=== PATIENT | male | born 1995 | race Caucasian/White ===

== ENCOUNTER 2017-10-04 13:12 | Inpatient (IN) | payer MEDICAID, OTHER ==
--- NOTE | 2017-10-04 13:55 | C.PDOC ---
History Of Present Illness 21 year old male is brought to the ED by ambulance and [employer] for psychiatric evaluation of agitated and bizarre behavior noted POL[employer]. Patient states he was taking a shower earlier today, when he began feeling like he was getting " bitten all over." Patient then got out of the shower and ran into traffic, stating he wanted to kill himself. Upon ED arrival, patient is screaming, crying and displaying further bizarre behavior. He admits to occasional cigarette, marijuana and alcohol use. Patient denies suicidal/homicidal ideation at this time. Time Seen by Provider: 10/04/17 13:23 Chief Complaint (Nursing): Psychiatric Evaluation History Per: Patient, EMS, Other ([employer]) History/Exam Limitations: no limitations Onset/Duration Of Symptoms: Hrs Current Symptoms Are (Timing): Still Present Suicide/Self Injury Attempted (Context): None Associated Symptoms: Suicidal Thoughts. denies: Suicidal Plan Involuntary Hold By: None Recent travel outside of the [place]: No Additional History Per: Patient, EMS, Law Enforcement Past Medical History Reviewed: Historical Data, Nursing Documentation, Vital Signs Vital Signs: Last Vital Signs Temp 98.8 F 10/04/17 15:15 Pulse 98 H 10/04/17 15:15 Resp 18 10/04/17 15:15 BP 119/68 10/04/17 15:15 Pulse Ox 97 10/04/17 15:15 - Medical History PMH: HIV Surgical History: No Surg Hx Family History: States: Unknown Family Hx - Social History Hx Alcohol Use: No Hx Substance Use: Yes - Immunization History Hx Tetanus Toxoid Vaccination: No Hx Influenza Vaccination: No Hx Pneumococcal Vaccination: No Review Of Systems Psych: Positive for: Suicidal ideation Physical Exam - Physical Exam Appears: Non-toxic, No Acute Distress, Other (restless, bizarre voluntary movements of hands and feet. calm, cooperative, answering questions ) Skin: Normal Color, Warm, Dry Head: Atraumatic, Normacephalic Eye(s): bilateral: Normal Inspection Oral Mucosa: Moist Neck: Supple Chest: Symmetrical, No Deformity, No Tenderness Cardiovascular: Rhythm Regular, No Murmur Respiratory: Normal Breath Sounds, No Rales, No Rhonchi, No Wheezing Extremity: Normal ROM, Capillary Refill (less than 2 seconds ) Neurological/Psych: Oriented x3 ED Course And Treatment - Laboratory Results Result Diagrams: 10/04/17 14:12 10/04/17 14:12 Lab Interpretation: No Acute Changes (UDS + marijuana and amphetamines) O2 Sat by Pulse Oximetry: 95 Progress Note: Bloodwork and urinalysis ordered and reviewed. Patient evaluated by crisis and case discussed with psychiatrist. He is medically cleared for a psychiatric admission. Reevaluation Time: 18:02 Reassessment Condition: Unchanged Disposition - Disposition Disposition: HOSPITALIZED Disposition Time: 18:02 Condition: STABLE - Clinical Impression Clinical Impression: Manic bipolar I disorder, Substance abuse - Scribe Statement The provider has reviewed the documentation as recorded by the Scribe (Laura Lamb) Provider Attestation: All medical record entries made by the Scribe were at my direction and personally dictated by me. I have reviewed the chart and agree that the record accurately reflects my personal performance of the history, physical exam, medical decision making, and the department course for this patient. I have also personally directed, reviewed, and agree with the discharge instructions and disposition.
[2017-10-04 14:17] LABS: EOS # 0.1 K/uL (0.0-0.7); LYMPH # 1.8 K/uL (1.0-4.3); MONO # 0.9 K/uL (0.0-0.8)
[2017-10-04 14:18] LABS: BASO # 0.1 K/uL (0.0-0.2); BASO % 0.6 % (0.0-2.0); EOS % 0.7 % (0.0-4.0); HEMOGLOBIN 15.6 g/dL (12.0-18.0); LYMPH % 18.1 % (20.0-40.0); MEAN CELL VOLUME 88.7 fL (80.0-94.0); MEAN PLATELET VOLUME 7.6 fL (7.2-11.7); NEUT # 7.2 K/uL (1.8-7.0); NEUT % 71.6 % (50.0-75.0); NRBC % 0.1 % (0.0-2.0); RBC 5.03 Mil/uL (4.40-5.90); RED CELL DISTRIBUTION WIDTH 13.7 % (11.5-14.5); WHITE BLOOD COUNT 10.1 K/uL (4.8-10.8)
[2017-10-04 14:29] LABS: ALB/GLOB RATIO 1.5 (1.0-2.1); ALT/SGPT 25 U/L (21-72); AST/SGOT 38 U/L (17-59); BLOOD UREA NITROGEN 20 mg/dL (9-20); CALCIUM 9.5 mg/dl (8.6-10.4); GFR AFRICAN-AMERICAN > 60; GFR NON-AFRICAN AMERICAN > 60
[2017-10-04 15:58] LABS: SQUAMOUS EPITHIAL 1 /hpf (0-5); URINE BACTERIA RARE (<OCC); URINE BILIRUBIN NEGATIVE (NEGATIVE); URINE BLOOD NEGATIVE (NEGATIVE); URINE CLARITY Hazy (Clear); URINE COLOR Amber (YELLOW); URINE GLUCOSE (UA) NORMAL (Normal); URINE LEUKOCYTE ESTERASE NEG Leu/uL (Negative); URINE PROTEIN 1+ mg/dL (NEGATIVE); URINE UROBILINOGEN NORMAL mg/dL (0.2-1.0)
[2017-10-04 16:44] LABS: BENZODIAZEPINES, UR NEGATIVE (NEGATIVE); OPIATES, UR NEGATIVE (NEGATIVE); PHENCYCLIDINE, UR NEGATIVE (NEGATIVE)
[2017-10-04 19:24] LABS: BARBITURATES, UR NEGATIVE (NEGATIVE)
--- NOTE | 2017-10-04 22:30 | PCM.BM ---
<Tyron Burgos - Last Filed: 10/04/17 22:29> Treatment Plan Problems - Problems identified on initial assessmt Bipolar disorder Date Initiated: 10/04/17 Time Initiated: 22:29 Treatment assets and liabiliti Patient Assests: cooperative, educated Patient Liabilities: substance abuse (Marijuana) - Milieu Protocol Maintain good personal hygiene: daily Encourage regular showers, daily Remind patient to perform daily oral care, every shift Assist patient to perform ADL's Conduct patient checks and document Observation sheet: Q15 minutes (For safety) Maintain personal safety: every shift Educate patient to report safety concerns to staff, every shift Monitor environment for contraband/sharps Medication safety: Monitor for expected outcome, potential side effects: every shift, Assess barriers to learning: every shift, Assess readiness for medication education: every shift <Shannan Mccarty - Last Filed: 10/06/17 10:47> - Diagnosis (1) Manic bipolar I disorder Status: Acute Interventions: 10/06/17 10:48 * Assess/adjust medications daily and /or as needed * See patient on an individual basis 7x/week to assess level of manic behaviors and stability * Discuss risks, benefits, side effects and alternatives of medications * (2) Substance abuse Status: Acute Interventions: 10/06/17 10:48 * Assess 7x/week regarding severity of withdrawal * Educate regarding risks, benefits, side effects and alternatives of medications * Use Motivational Interviewing for abstinence * Use CBT for relapse prevention * Medication management for withdrawal symptoms * Encourage medication assisted treatment * <Dayanara Reno - Last Filed: 10/06/17 11:33> Family Contact Family involvement: Famliy/SO not involved - Goals for Treatment Patient goals for treatment: "I don't know." Discharge/Continuing Care - Education Needs Education Needs: Patient Medication, Patient Coping Skills - Discharge Discharge Criteria: Tolerates medication w/o severe side effects, Free of Suicidal thoughts, Reduction of target symptoms Discharge to:: Home - Treatment Team Participation Discussed with Family/SO: No Was Patient/Family/SO present at Treatment Team Meeting: Yes
--- NOTE | 2017-10-05 09:37 | PCM.PSYCH ---
Initial Psychiatric Evaluation - Initial Psychiatric Evaluation Type of Admission: Voluntary Legal Status: Capacity Chief Complaint (in patient's own words): I don't know why the police came.' History of Present Illness and Precipitating Events: Patient was a 21 year old male brought to emergency room in handcuffs by Police due to disorganized behavior, suicidal threat and attempt to jump off the roof of his apartment. Patient appeared somewhat disorganized throughout the interview. He continued to have abnormal movements of the hands and appeared delusional, paranoid and worthlessness. According to Patient's report, Patient stated "I was taking a shower and came downstairs and went back up. I was cuffed when Police called. I couldn't stop saying what I was saying. I said I want to ". Patient denies any history of mental illness. However, [facility] records indicates that Patient has a history of alcohol use, Bipolar Disorder and Substance abuse. Patient denies any history of inpatient psychiatric hospitalizations at the time of interview. Patient reports history of mental illness in the maternal family of origin. Patient's mother was reported to suffer from Bipolar and Depression. Patient reports history of alcohol use, marijuana use, tobacco use, acid use, mushroom use and cocaine use. Reports that he stopped using mushrooms , acid and cocaine more than 1 year ago. Patient reports, he smokes marijuana with his sister once per week (a blunt) and reports drinking socially. Patient reports completing freshman year at [employer] and dropped out during the 3rd semester of sophomore year due to depression and substance use. He remains irritable, agitated and restless throughout the interview. He appears paranoid and delusional however, he denies any auditory or visual hallucinations. PMH Asthma Current Medications: Active Medications Generic Name Dose Route Start Last Admin Trade Name Freq PRN Reason Stop Dose Admin Haloperidol 5 mg 10/04/17 23:14 Haldol PO Q6 PRN Agitation Ibuprofen 400 mg 10/04/17 23:16 Motrin Tab PO Q6 PRN Pain, moderate (4-7) Lorazepam 1 mg 10/04/17 23:14 Ativan PO Q6 PRN Anxiety Risperidone 2 mg 10/05/17 22:00 Risperdal Tab PO HS AURELIA Trazodone HCl 50 mg 10/04/17 23:30 10/05/17 07:49 Desyrel PO Not Given HS AURELIA Past Psychiatric History - Past Psychiatric History Previous Treatment History: None Pertinent Medical Hx (Current Medical&Sleep Prob, Allergies): Allergies Allergy/AdvReac Type Severity Reaction Status Date / Time shellfish derived Allergy Verified 10/04/17 13:33 Emtricitabine/Tenofovir [Truvada 200 mg-300 mg] 1 tab PO DAILY 10/31/14 Review of Systems - Review of Systems All systems: reviewed and no additional remarkable complaints except - Psychiatric Psychiatric: Anxiety, Irritability, Mood Swings, Paranoia, Suicidal Ideation Mental Status Examination - Personal Presentation Personal Presentation: Looks older than stated age - Affect Affect: Constricted, Depressed - Motor Activity Motor Activity: Psychomotor Agitation - Reliability in Providing Information Reliability in Providing Information: Poor, due to alteration in thoughts, Poor , due to altered mood - Speech Speech: Disorganized - Mood Mood: Depressed, Anxious - Formal Thought Process Formal Thought Process: Delusions, Paranoia, Loosening of associations - Hallucinations/Delusions Delusions: Persecution - Obsessions/Compulsions Obsessions: No Compulsions: No - Cognitive Functions Orientation: Person, Place, Situation, Time Sensorium: Alert Attention/Concentration: Attentive Abstract Thinking: [place] Estimate of Intelligence: Below average Judgement: Imparied, as evidence by: Poor judgement, Imparied, as evidence by: Lack of insight into illness - Risk Risk: Diminished functioning - Strength & Assets Inventory Strength & Assets Inventory: Family support DSM 5 DX - DSM 5 DSM 5 Diagnosis: Bipolar disorder mixed with psychotic features Rule out schizoaffective disorder bipolar type 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 - Recommended/Plan of Treatment Treatment Recommendations and Plan of Treatment: Bipolar disorder mixed with psychotic features Rule out schizoaffective disorder bipolar type 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
--- NOTE | 2017-10-06 10:48 | PCM.PYCHPN ---
Psychiatric Progress Note - Psychiatric Progress Note Patient seen today, length of contact: 15 min Patient Chief Complaint: I don't know why the police came.' Problems Identified/Issues Discussed: Patient seen and evaluated, chart reviewed and discussed with the nurse. Patient remained disorganized and internally preoccupied. Patient remained isolated, confined and withdrawn. He still reports of hearing voices. Patient still appears paranoid and delusional. He is taking medication and denies any side effects. Supportive therapy and psychoeducation were given. Medication Change: Yes Medical Record Reviewed: Yes Mental Status Examination - Cognitive Function Orientation: Person, Place, Situation, Time Memory: Intact Attention: WNL Concentration: Poor Association: Loose Fund of Knowledge: Poor - Mood Mood: Depressed, Anxious - Affect Affect: Constricted, Depressed - Speech Speech: Soft - Formal Thought Process Formal Thought Process: Delusions, Paranoia, Loosening of associations - Suicidal Ideation Suicidal Ideation: No - Homicidal Ideation Homicidal Ideation: No Goal/Treatment Plan - Goal/Treatment Plan Need for Continued Stay: Severe depression anxiety, Severe functional impairment Progress Toward Problem(s) and Goals/Treatment Plan: Bipolar disorder mixed with psychotic features Rule out schizoaffective disorder bipolar type 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
--- NOTE | 2017-10-07 08:02 | PCM.PYCHPN ---
Psychiatric Progress Note - Psychiatric Progress Note Patient seen today, length of contact: 15 min Patient Chief Complaint: I am feeling fine.'' Problems Identified/Issues Discussed: Patient seen and evaluated, chart reviewed and discussed with the nurse. Today patient appears somewhat more organized but remained internally preoccupied. Patient remained isolated, confined and withdrawn. He denies any voices, but he appears paranoid and delusional. He remained isolated and withdrawn, and denies any suicidal ideation or homicidal ideation. He is taking medication and denies any side effects. Symptoms are improving but needs more time for stabilization. Supportive therapy and psychoeducation were given. Medication Change: Yes (Increase Risperdal) Medical Record Reviewed: Yes Mental Status Examination - Cognitive Function Orientation: Person, Place, Situation, Time Memory: Intact Attention: WNL Concentration: Poor Association: Loose Fund of Knowledge: Poor - Mood Mood: Depressed, Anxious - Affect Affect: Constricted, Depressed - Speech Speech: Soft - Formal Thought Process Formal Thought Process: Delusions, Paranoia, Loosening of associations - Suicidal Ideation Suicidal Ideation: No - Homicidal Ideation Homicidal Ideation: No Goal/Treatment Plan - Goal/Treatment Plan Need for Continued Stay: Severe depression anxiety, Severe functional impairment Progress Toward Problem(s) and Goals/Treatment Plan: Bipolar disorder mixed with psychotic features Rule out schizoaffective disorder bipolar type 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
--- NOTE | 2017-10-08 17:17 | PCM.PYCHPN ---
Psychiatric Progress Note - Psychiatric Progress Note Patient seen today, length of contact: 15 min Patient Chief Complaint: I am feeling fine.'' Problems Identified/Issues Discussed: Patient seen and evaluated, chart reviewed and discussed with the nurse. Today patient appears somewhat more organized but remained internally preoccupied. Patient remained isolated, confined and withdrawn. He denies any voices, but he appears paranoid and delusional. He remained isolated and withdrawn, and denies any suicidal ideation or homicidal ideation. He is taking medication and denies any side effects. Symptoms are improving but needs more time for stabilization. Supportive therapy and psychoeducation were given. Medication Change: Yes (Increase Risperdal) Medical Record Reviewed: Yes Mental Status Examination - Cognitive Function Orientation: Person, Place, Situation, Time Memory: Intact Attention: WNL Concentration: Poor Association: Loose Fund of Knowledge: Poor - Mood Mood: Depressed, Anxious - Affect Affect: Constricted, Depressed - Speech Speech: Soft - Formal Thought Process Formal Thought Process: Delusions, Paranoia, Loosening of associations - Suicidal Ideation Suicidal Ideation: No - Homicidal Ideation Homicidal Ideation: No Goal/Treatment Plan - Goal/Treatment Plan Need for Continued Stay: Severe depression anxiety, Severe functional impairment Progress Toward Problem(s) and Goals/Treatment Plan: Bipolar disorder mixed with psychotic features Rule out schizoaffective disorder bipolar type 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
[2017-10-09 08:08] VITALS: O2SAT 98
--- NOTE | 2017-10-12 14:13 | PCM.PYCHPN ---
Psychiatric Progress Note - Psychiatric Progress Note Patient seen today, length of contact: 15 min Patient Chief Complaint: I am feeling fine.'' Problems Identified/Issues Discussed: Patient seen and evaluated, chart reviewed and discussed with the nurse. As per staff, patient was found talking to himself and making a conversation. However he still appears more organized than before but he remained internally preoccupied. He started coming out of his room and was found pacing back and forth in the hallway and punching the air. He appears paranoid and delusional. He is taking medication and denies any side effects. Symptoms are improving but needs more time for stabilization. Supportive therapy and psychoeducation were given. Medication Change: Yes (Increase Risperdal) Medical Record Reviewed: Yes Mental Status Examination - Cognitive Function Orientation: Person, Place, Situation, Time Memory: Intact Attention: WNL Concentration: Poor Association: Loose Fund of Knowledge: Poor - Mood Mood: Depressed, Anxious - Affect Affect: Constricted, Depressed - Speech Speech: Soft - Formal Thought Process Formal Thought Process: Delusions, Paranoia, Loosening of associations - Suicidal Ideation Suicidal Ideation: No - Homicidal Ideation Homicidal Ideation: No Goal/Treatment Plan - Goal/Treatment Plan Need for Continued Stay: Severe depression anxiety, Severe functional impairment Progress Toward Problem(s) and Goals/Treatment Plan: Bipolar disorder mixed with psychotic features Rule out schizoaffective disorder bipolar type 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 - Smoking Cessation Smoking Cessation Initiated: No
[2017-10-12] MEDS ORDERED: Paliperidone Palmitate 234 MG/1.5 ML SYR IM ONE ×4 (15:00→16:30)
--- NOTE | 2017-10-13 10:24 | PCM.PYCHPN ---
Psychiatric Progress Note - Psychiatric Progress Note Patient seen today, length of contact: 15 min Patient Chief Complaint: I am feeling fine.'' Problems Identified/Issues Discussed: Patient seen and evaluated, chart reviewed and discussed with the nurse. As per staff, patient appears more organized than before and appears less internally preoccupied. He started coming out of his room and was found pacing back and forth in the hallway. He appears less paranoid and delusional. Yesterday he took Invega Sustenna, injection without any hesitation.. He is taking medication and denies any side effects. Symptoms are improving but needs more time for stabilization. Supportive therapy and psychoeducation were given. Medication Change: Yes (Increase Risperdal) Medical Record Reviewed: Yes Mental Status Examination - Cognitive Function Orientation: Person, Place, Situation, Time Memory: Intact Attention: WNL Concentration: WNL Association: Loose Fund of Knowledge: WNL - Mood Mood: Depressed, Anxious - Affect Affect: Constricted, Depressed - Speech Speech: Soft - Formal Thought Process Formal Thought Process: Paranoia, Loosening of associations - Suicidal Ideation Suicidal Ideation: No - Homicidal Ideation Homicidal Ideation: No Goal/Treatment Plan - Goal/Treatment Plan Need for Continued Stay: Severe depression anxiety, Severe functional impairment Progress Toward Problem(s) and Goals/Treatment Plan: Bipolar disorder mixed with psychotic features Rule out schizoaffective disorder bipolar type 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
--- NOTE | 2017-10-14 12:22 | PCM.PYCHPN ---
Psychiatric Progress Note - Psychiatric Progress Note Patient seen today, length of contact: 15 min Patient Chief Complaint: I am feeling fine.'' Problems Identified/Issues Discussed: Patient seen and evaluated, chart reviewed and discussed with the nurse. Patient appears more organized and less paranoid. He has started taking care of his hygiene. He has started coming out of his room. He is no longer responding to internal stimuli. He is no longer talking to himself, or punching the air. He is taking medication and denies any side effects. Symptoms are improving but needs more time for stabilization. Supportive therapy and psychoeducation were given. Medication Change: No Medical Record Reviewed: Yes Mental Status Examination - Cognitive Function Orientation: Person, Place, Situation, Time Memory: Intact Attention: WNL Concentration: WNL Association: Loose Fund of Knowledge: WNL - Mood Mood: Anxious - Affect Affect: Constricted, Depressed - Speech Speech: Soft - Formal Thought Process Formal Thought Process: Loosening of associations - Suicidal Ideation Suicidal Ideation: No - Homicidal Ideation Homicidal Ideation: No Goal/Treatment Plan - Goal/Treatment Plan Need for Continued Stay: Severe depression anxiety, Severe functional impairment Progress Toward Problem(s) and Goals/Treatment Plan: Bipolar disorder mixed with psychotic features Rule out schizoaffective disorder bipolar type 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
--- NOTE | 2017-10-15 15:31 | PCM.PYCHPN ---
Psychiatric Progress Note - Psychiatric Progress Note Patient seen today, length of contact: 15 min Patient Chief Complaint: I am feeling fine.'' Problems Identified/Issues Discussed: Patient seen and evaluated, chart reviewed and discussed with the nurse. Patient appears much better than before. He has started taking care of his hygiene. He is no longer responding to internal stimuli. He is no longer talking to himself, or punching the air. He is taking medication and denies any side effects. Symptoms are improving but needs more time for stabilization. Supportive therapy and psychoeducation were given. Medication Change: No Medical Record Reviewed: Yes Mental Status Examination - Cognitive Function Orientation: Person, Place, Situation, Time Memory: Intact Attention: WNL Concentration: WNL Association: Loose Fund of Knowledge: WNL - Mood Mood: Anxious - Affect Affect: Constricted - Speech Speech: Soft - Formal Thought Process Formal Thought Process: Loosening of associations - Suicidal Ideation Suicidal Ideation: No - Homicidal Ideation Homicidal Ideation: No Goal/Treatment Plan - Goal/Treatment Plan Need for Continued Stay: Severe depression anxiety, Severe functional impairment Progress Toward Problem(s) and Goals/Treatment Plan: Bipolar disorder mixed with psychotic features Rule out schizoaffective disorder bipolar type 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 - Smoking Cessation Smoking Cessation Initiated: No
[2017-10-16 06:31] VITALS: PULSE 107; RESP 18; TEMP 98.2
[2017-10-16 08:59] VITALS: BP 111/63
--- NOTE | 2017-10-16 10:01 | PCM.PYCHDC ---
Mental Status Examination - Mental Status Examination Orientation: Person, Place, Situation, Time Memory: Intact Mood: Neutral Affect: Constricted Speech: Soft Attention: WNL Concentration: WNL Association: WNL Fund of Knowledge: WNL Formal Thought Process: No Impairment Description of patient's judgement and insight: good, fair Psychotic Thoughts and Behaviors: denies any AVH Suicidal Ideation: No Current Homicidal Ideation?: No Discharge Summary - Discharge Note Reason for Hospitalization: Patient was a 21 year old male brought to emergency room in handcuffs by Police due to disorganized behavior, suicidal threat and attempt to jump off the roof of his apartment. Patient appeared somewhat disorganized throughout the interview. He continued to have abnormal movements of the hands and appeared delusional, paranoid and worthlessness. According to Patient's report, Patient stated "I was taking a shower and came downstairs and went back up. I was cuffed when Police called. I couldn't stop saying what I was saying. I said I want to ". Patient denies any history of mental illness. However, [facility] hospital records indicates that Patient has a history of alcohol use, Bipolar Disorder and Substance abuse. Patient denies any history of inpatient psychiatric hospitalizations at the time of interview. Patient reports history of mental illness in the maternal family of origin. Patient's mother was reported to suffer from Bipolar and Depression. Patient reports history of alcohol use, marijuana use, tobacco use, acid use, mushroom use and cocaine use. Reports that he stopped using mushrooms , acid and cocaine more than 1 year ago. Patient reports, he smokes marijuana with his sister once per week (a blunt) and reports drinking socially. Patient reports completing freshman year at [employer] and dropped out during the 3rd semester of sophomore year due to depression and substance use. He remains irritable, agitated and restless throughout the interview. He appears paranoid and delusional however, he denies any auditory or visual hallucinations. Consultations:: List each consultation separately and include: 1. Reason for request. 2. Findings. 3. Follow-up Summary of Hospital Course include:: 1. Description of specific treatment plan utilized for patients during their course of treatmen. 2. Summarize the time- course for resolution of acute symptoms and/or regressed behaviors. 3. Describe issues identified and worked on during hospitalization. 4. Describe medication utilized. 5. Describe medical problems identified and treated. 6. Reassessment of suicide risk Summary of Hospital Course: During the course of his stay, patient (pt) started progressively improving and he no longer remained irritable, depressed, suicidal and paranoid. His mood and paranoia were improved and he started attending groups and meetings and started socializing. He started taking care of his hygiene and ADLs, and he no longer remained disheveled and malodorous. Patient denied any feelings of hopelessness , helplessness, and worthlessness, denied any problem with the sleep or appetite , denied suicidal ideation or homicidal ideation. Pt denied any auditory or visual hallucinations. Some changes were made in his current medications and patient was discharged on following medications. He tolerated these medications very well and denied any side effects. He was also given Invega Sustenna 234 mg IM, on 10/12/17. Patient has a scheduled appointment with [facility] program Wednesday, October 18, 2017 at 8:30am. - Diagnosis (1) Manic bipolar I disorder Status: Acute (2) Substance abuse Status: Acute - Final Diagnosis (DSM 5) Condition upon Discharge: STABLE DSM 5: Shizoaffective disorder bipolar type Cannabis use disorder severe Acetaminophen use disorder severe Disposition: HOME/ ROUTINE Follow-up Treatment Plan: Education: Pt was educated and counseled about the risks and benefits of taking and not taking medications. Pt was educated and counseled about the risks of drinking and abusing drugs. Pt was educated and counseled to go to the ER or call 911 if pt develop suicidal ideation or homicidal ideation, worsening of symptoms or severe side effects of the meds. Prescriptions/Medication Reconciliation: Benztropine [Cogentin] 1 mg PO BID #60 tab Gabapentin [Neurontin] 300 mg PO TID #90 cap Paliperidone Palmitate [Invega Sustenna] 234 mg IM ONCE #1 syr risperiDONE [RisperDAL Tab] 2 mg PO DAILY #30 tab traZODone [Desyrel] 100 mg PO HS #30 tab - Smoking Cessation Smoking Cessation Medication prescribed: No - Antipsychotic Medications Pt discharged on 2 or more routine antipsychotic medications: No
== END 2017-10-16 13:38 | disposition home or self-care (01) | DRG 430 ==
LOC: C.ER 13:12 → C.5E 18:03 → C.9E 18:03
PROC: GZHZZZZ Group Psychotherapy (ICD-10-PCS; principal; 2017-10-04)
DX: F31.64 Bipolar disorder, current episode mixed, severe, with psychotic features (principal); F15.10 Other stimulant abuse, uncomplicated; J45.909 Unspecified asthma, uncomplicated; F17.210 Nicotine dependence, cigarettes, uncomplicated; F12.10 Cannabis abuse, uncomplicated